=== PATIENT | male | born 1960 | race Caucasian/White ===

== ENCOUNTER → 2016-05-01 | Outpatient (CLI) | payer BC | END | disposition home or self-care (01) | LOC: LAB.O 09:27 | PROVIDERS: ATTEND Internal Medicine Hematology & Oncology | DX: D75.1 Secondary polycythemia (principal) ==

== ENCOUNTER → 2016-11-16 | Outpatient (CLI) | payer BC | END | disposition home or self-care (01) | LOC: LAB.O 08:44 | PROVIDERS: ATTEND Nurse Practitioner Family | DX: D58.2 Other hemoglobinopathies (principal) ==

== ENCOUNTER → 2016-11-23 | Outpatient (CLI) | payer BC | END | disposition home or self-care (01) | LOC: LAB.O 15:49 | PROVIDERS: ATTEND Internal Medicine Hematology & Oncology | DX: D75.1 Secondary polycythemia (principal) ==

== ENCOUNTER → 2017-02-28 | Outpatient (CLI) | payer BC | END | disposition home or self-care (01) | LOC: LAB.O 08:31 | PROVIDERS: ATTEND Internal Medicine Hematology & Oncology | DX: D75.1 Secondary polycythemia (principal) ==

== ENCOUNTER → 2018-03-04 | Outpatient (CLI) | payer BC ==
[~2018-03-04] MED LIST: IPRATROPIUM/ALBUTEROL 3 ML VIAL NEB ONE
== END ==
LOC: RESP 13:57
PROVIDERS: ATTEND Family Medicine
DX: R05 Cough (principal); F17.210 Nicotine dependence, cigarettes, uncomplicated
CPT/HCPCS: 94060; J7620

== ENCOUNTER 2018-04-23 16:01 | Inpatient (IN) | payer BC ==
--- NOTE | 2018-04-23 16:22 | ED.PDOC ---
History of Present Illness - General Chief Complaint: Trauma Stated Complaint: abdominal pain Time Seen by Provider: 04/23/18 16:11 Source: patient Exam Limitations: no limitations - History of Present Illness Initial Comments: PT TRIPPED AND FELL AGAINST LARGE BALE OF HAY YESTERDAY. HAD RLQ PAIN BUT HAS GOTTEN PROGRESSIVELY WORSE. PAST 2 HOURS STARTED DEVELOPING NAUSEA DECIDED TO COME TO ER FOR EVAL. ALSO HAS HX OF 4.2 CM AAA AND IS DUE FOR CTA IN LESS THAN A WEEK. Severity: moderate Improving Factors: nothing Worsening Factors: nothing Allergies/Adverse Reactions: Allergies Levofloxacin [From Levaquin] Allergy (Verified 04/23/18 16:17) Home Medications: Ambulatory Orders NK 04/23/18 Review of Systems - Review of Systems Constitutional: Denies: chills, fever, malaise, weakness EENTM: States: no symptoms reported Respiratory: Denies: cough, short of breath Cardiology: Denies: chest pain, palpitations, syncope Gastrointestinal/Abdominal: States: abdominal pain, nausea, other - NO HEMATACHEZIA. Denies: diarrhea, vomiting Genitourinary: States: no symptoms reported Musculoskeletal: Denies: back pain, neck pain Skin: States: no symptoms reported Neurological: States: no symptoms reported Endocrine: States: no symptoms reported Hematologic/Lymphatic: States: no symptoms reported Past Medical History (General) - Patient Medical History Hx Cardiac Disorders: Yes - AAA - Vaccination History Hx Influenza Vaccination: No Hx Pneumococcal Vaccination: No - Social History Hx Tobacco Use: Yes Hx Alcohol Use: No Family Medical History - Family History Mother Family History: Unknown Physical Exam - Physical Exam General Appearance: Alert, No apparent distress Eye Exam: bilateral normal Ears, Nose, Throat: normal ENT inspection Neck: non-tender, full range of motion, supple Respiratory: lungs clear, normal breath sounds, no respiratory distress, other - NO EVIDENCE OF CHEST WALL TRAUMA Cardiovascular/Chest: regular rate, rhythm, no murmur Gastrointestinal/Abdominal: normal bowel sounds, soft, no organomegaly, other - MOD TTP R MID ABDOMEN, NO RUQ TTP, NO EVIDENCE OF TRAUMA Back Exam: normal inspection, no CVA tenderness Extremity: normal range of motion, non-tender, normal inspection Neurologic: alert, normal mood/affect Skin Exam: normal color, other - NO ECCHYMOSIS Lymphatic: no adenopathy Progress - Progress Progress: 04/23/18 20:48 CTA ABDOMEN NO TRAUMA, AAA 4.6 BUT POSSIBLE APPENDICITIS, CT PELVIS POS APPENDICITIS, D/W DR DAGO VÁSQUEZ TO ADMIT AND ABX. D/W NINA WILL ADMIT. Departure - Departure Clinical Impression: Appendicitis Qualifiers: Appendicitis type: acute appendicitis Acute appendicitis type: unspecified acute appendicitis type Qualified Code(s): K35.80 - Unspecified acute appendicitis AAA (abdominal aortic aneurysm) Qualifiers: Presence of rupture: without rupture Qualified Code(s): I71.4 - Abdominal aortic aneurysm, without rupture Time of Disposition: 20:49 Disposition: Admit Patient Condition: Good Departure Forms: ED Discharge - Pt. Copy, Patient Portal Self Enrollment Instructions: DI for Trauma Referrals: ROMÁN NEUMANN MD [Primary Care Provider] - 1-2 Weeks Home Medications: Ambulatory Orders NK 04/23/18 Decision To Admit - Decistion To Admit Decision to Admit Date: 04/23/18 Decision to Admit Time: 20:50
--- NOTE | 2018-04-23 16:44 | RAD ---
EXAM DESCRIPTION: Chest,1 View CLINICAL HISTORY: 58 years Male, ABDOMINAL PAIN AFTER TRAUMA COMPARISON: None. TECHNIQUE: AP portable chest. FINDINGS: Lungs are clear. No consolidation. Heart normal size. IMPRESSION: Normal. Electronically signed by: Festus Kearney MD 04/23/2018 4:43 PM [facility]
--- NOTE | 2018-04-23 17:38 | CT ---
EXAM DESCRIPTION: CTA Abdomen CLINICAL HISTORY: FELL ON BALE OF HAY. PROGRESSIVE RLQ PAIN. HX AAA COMPARISON: None Available TECHNIQUE: Contiguous axial images of the abdomen were obtained after the administration of intravenous contrast followed by reconstruction images. MIP CTA reconstructions were created. This exam was performed according to our departmental dose-optimization program, which includes automated exposure control, adjustment of the mA and/or kV according to patient size and/or use of iterative reconstruction technique. FINDINGS: Soft tissue attenuation 9 mm right adrenal mass is present. Abdominal aortic aneurysm measures 46 mm diameter and is largely filled with plaque. The patent lumen is roughly the same size as the expected lumen of the aorta. There is internal plaque/thrombosis along the [place]. There is significant atherosclerotic plaque elsewhere. No evidence of dissection or active extravasation. Incompletely imaged is a tubular structure most likely representing the appendix which appears enlarged and blind-ending, measuring 14 mm diameter. However it is not fully imaged. There is mild soft tissue stranding in the right lower quadrant in this region. There is approximately 60% narrowing of the origin of the celiac trunk. The HEMALATHA is not well seen. Just below the origin of the renal arteries, there is a focal saccular appearing aneurysm of the aorta measuring 36 mm transverse. See coronal reconstructions. No other acute abnormality. No fracture is seen. No significant free fluid. No free air. No bowel obstruction. IMPRESSION: Complex abdominal aortic aneurysms with extensive atherosclerosis but no definite acute injury. Vascular surgical consultation and follow-up every six months is recommended. Possible appendicitis but the pelvis is not fully imaged. A tubular structure is only partially seen. Follow-up is recommended. The HEMALATHA is not well seen and may be significantly stenotic. Celiac trunk stenosis. Right adrenal mass. Electronically signed by: Camden Ayala 04/23/2018 5:37 PM [facility] [employer] COORDINATOR
[2018-04-23] MEDS ORDERED: PIPERACILLIN/TAZOBACTAM 3.375 GM in SODIUM CHLORIDE 0.9% 100ML 100 ML IVPB ONE ×2 (19:20→23:56)
[2018-04-23] MEDS ORDERED: PIPERACILLIN/TAZOBACTAM 3.375 GM VIAL IVPB ONE (19:48)
[2018-04-23] MEDS ORDERED: SODIUM CHLORIDE 0.9% 100ML 100 ML IVPB ONE (19:48)
--- NOTE | 2018-04-23 20:46 | CT ---
EXAM DESCRIPTION: Pelvis CLINICAL HISTORY: 58 years Male R/O APPENDICITIS, COMPARISON: None TECHNIQUE: Contiguous axial images were obtained through the pelvis at a slice thickness of 3 mm. Coronal and sagittal reconstructions are also obtained and reviewed. FINDINGS: PELVIS: BOWEL: The visualized small bowel and colon are unremarkable without evidence of obstruction or inflammatory changes. There is mural thickening in the rectum up to 1 cm with some asymmetric thickening on the right when compared to the left wall. APPENDIX: The appendix is dilated, measuring approximately 12 mm with periappendiceal reticulation. BLADDER: The urinary bladder is unremarkable, allowing for the degree of distention. There is no evidence of cystolithiasis or bladder mass. REPRODUCTIVE: The prostate is mildly enlarged, measuring 4.7 cm T . The seminal vesicles appear unremarkable. INTRAPERITONEAL SPACE: Unremarkable. No free air or free fluid. No significant free fluid or focal fluid collection. BONES/JOINTS: There are no discernible acute fractures or areas of osseous destruction or blastic change. The SI joints are preserved. The sacral foraminal lines are intact. No evidence of subluxation or dislocation. SOFT TISSUES: There is a tiny fat-containing umbilical hernia. There is also a small fat-containing right inguinal hernia which measures up to 2.3 cm x 0.4 cm VASCULATURE: There is an infrarenal abdominal aortic aneurysm measuring 4.6 cm AP by 4.3 cm T with mural thrombus narrowing the canalized lumen to 1.8 cm x 2.6 cm. The aneurysm terminates at the bifurcation. There is scattered atherosclerosis. LYMPH NODES: Unremarkable. There is no evidence of mesenteric, retroperitoneal, pelvic or inguinal adenopathy. IMPRESSION: Acute appendicitis. THIS REPORT CONTAINS FINDINGS THAT MAY BE CRITICAL TO PATIENT CARE: The findings were verbally discussed via telephone conference with Dr. Dago Slaughter by Dr. Marianne Victor on 04/23/2018 8:41 PM [employer] W[employer] T[employer]ATMENT OPERATOR .The results were acknowledged and understood. Mural thickening of the rectum, eccentrically more prominent on the right could be inflammatory or neoplastic. Recommend careful clinical exam and/or proctoscopy. Infrarenal abdominal aortic aneurysm. Mild prostatomegaly. Recommend correlation with serum PSA. Electronically signed by: Marianne Victor MD 04/23/2018 8:45 PM P[employer]ABLE WATER TREATMENT OPERATOR
--- NOTE | 2018-04-23 23:05 | HP ---
SUPERVISING PHYSICIAN: Diaz Gambino MD CHIEF COMPLAINT: Abdominal pain. HISTORY OF PRESENT ILLNESS: This is a 58-year-old male patient who tripped and fell against a large bale of hay the day before his admission. He had right lower quadrant pain after he fell against it and it progressively worsened overnight. He started having some nausea and came to the Emergency Room for evaluation. He has a history of a 4.2 cm abdominal aortic aneurysm and he is to have a CTA of the abdomen within the next week. In the Emergency Room, his vital signs showed temperature 97, heart rate 75, blood pressure 142/88, respiratory rate 20, O2 saturation 98%. His labs showed CBC that was unremarkable. Chemistry showed sodium 131, potassium 4.2, chloride 98, carbon dioxide 23, BUN 14, creatinine 0.99, serum osmolality 263.3. Urinalysis was basically within normal limits. His chest x-ray was normal. Abdominal CTA impression showed complex abdominal aortic aneurysm with extensive atherosclerosis, but no definite acute injury. Vascular surgical consultation and followup every 6 months is recommended. Possible appendicitis, but the pelvis is not fully imaged. A tubular structure is only partially seen. Followup is recommended. The HEMALATHA is not well seen and may be significantly stenotic. Celiac trunk stenosis. Right adrenal mass. The pelvic CT showed acute appendicitis with mural thickening of the rectum, eccentrically more prominent on the right could be inflammatory or neoplastic. Recommend careful clinical exam and/or proctoscopy. Infrarenal abdominal aortic aneurysm that is 4.6 cm x 4.[address] Pollack was called and consulted from the Emergency Room and then I was called to admit the patient to the hospital. PAST MEDICAL HISTORY: 1. Polycythemia vera. 2. Abdominal aortic aneurysm. PAST SURGICAL HISTORY: 1. Neck surgery. 2. Testicular removal at age 16 due to testicular torsion. OUTPATIENT MEDICATIONS: None. ALLERGIES: LEVAQUIN. SOCIAL HISTORY: He lives in [place]. He is . He smokes about 2 packs of cigarettes daily. He denies any ETOH or illicit drug use. REVIEW OF SYSTEMS: GENERAL: Negative for fever, chills or weight changes. HEENT: Negative for sinus symptoms, ear pain, vision changes or sore throat. RESPIRATORY: Negative for wheezing, coughing or shortness of breath. CARDIAC: Negative for chest pain, palpitations or tachycardia. GASTROINTESTINAL: As per history of present illness. GENITOURINARY: Negative for hematuria, dysuria or polyuria. MUSCULOSKELETAL: Negative for back pain, arthralgias, myalgias. SKIN: Negative for lesions or rashes. NEUROLOGIC: Negative for headache, dizziness or seizures. HEMATOLOGIC: Negative for bruising or unusual bleeding other than his polycythemia vera for which he has to be phlebotomized when his hematocrit gets above 54. PHYSICAL EXAMINATION: VITAL SIGNS: Temperature 98.6. Heart rate 95. Blood pressure 118/73. Respiratory rate 20. O2 saturation 97%. GENERAL: This is a 58-year-old male lying in his hospital bed. He is in no acute distress. HEENT: Normocephalic, atraumatic. Pupils are equal and reactive. Oropharynx is clear. NECK: Supple without mass. RESPIRATORY: Essentially clear to auscultation bilaterally. CHEST: There is equal rise and fall of the chest with inspiration and expiration. CARDIOVASCULAR: Regular rate and rhythm. No murmur detected. GASTROINTESTINAL: Abdomen is soft, nondistended. It is moderately tender to palpation of the right lower quadrant. There is no evidence of trauma. There is no rebound tenderness or guarding. EXTREMITIES: No cyanosis, clubbing or edema. NEUROLOGIC: Awake, alert and oriented times three. Cranial nerves II-XII are grossly intact. SKIN: Warm and dry. Normal color. There is no ecchymosis. LYMPHATIC: No cervical adenopathy. LABORATORY: Labs and films are as per history of present illness. IMPRESSION: 1. Acute appendicitis. 2. History of polycythemia vera. 3. Mild electrolyte imbalance, mainly hyponatremia and hypochloremia. 4. Tobacco abuse. 5. History of abdominal aortic aneurysm. PLAN: We will admit the patient to the hospital. He will be NPO at midnight. I have started him on Flagyl and Zosyn. I have consulted Dr. Pollack. He will see him in consult tomorrow to decide if he is a candidate for surgery. He will be on fluids overnight. I have given him an antiemetic as well as Dilaudid pain medication and he will be on a proton pump inhibitor for ulcer prophylaxis. We will do SCDs for DVT prophylaxis until after we decided if he is to have surgery. If he does, postoperatively we will give him Lovenox as recommended by Dr. Ranjeet. We will continue to monitor the patient closely and follow as needed. #[id number] MTDD
[2018-04-23] MEDS ORDERED: ONDANSETRON INJ 4 MG/2 ML VIAL IV PRN (23:43)
[2018-04-23] MEDS ORDERED: SODIUM CHLORIDE 0.9% (FLUSH) 10 ML SYG IV PRN (23:43)
[2018-04-23] MEDS ORDERED: IV SET AND CAP CHANGE INJ INJ SCH (23:45)
[2018-04-24] MEDS ORDERED: SODIUM CHLORIDE 0.9% 100ML 100 ML IVPB ONE ×4 (00:17→19:05)
[2018-04-24] MEDS ORDERED: PIPERACILLIN/TAZOBACTAM 3.375 GM VIAL IVPB ONE ×4 (00:17→19:04)
[2018-04-24] MEDS: PIPERACILLIN/TAZOBACTAM 3.375 GM in SODIUM CHLORIDE 0.9% 100ML 100 ML IVPB SCH ×3 (00:24→16:23)
[2018-04-24] MEDS: DEX 5% W/NACL 0.9% 1000ML 1,000 ML IVS PRN ×2 (00:25→21:55)
[2018-04-24] MEDS ORDERED: PIPERACILLIN/TAZOBACTAM 3.375 GM in SODIUM CHLORIDE 0.9% 100ML 100 ML IVPB SCH (03:00)
[2018-04-24] MEDS: SODIUM CHLORIDE 0.9% (FLUSH) 10 ML SYG IV SCH ×2 (08:35→20:57)
--- NOTE | 2018-04-24 13:14 | CONS ---
DATE OF CONSULTATION: 04/24/18 HISTORY OF PRESENT ILLNESS: The patient is a 58-year-old male who yesterday got somewhat pinched between two large round hay mirna. He developed right sided abdominal pain which worsened and he presented to the Emergency Room. He also had some nausea. It is significant that the patient is known to have abdominal aortic aneurysm that is being followed. His workup in the Emergency Room revealed a CT scan which revealed the aneurysm to be 4.6 cm, which was slightly larger than what was reported previously, but it was not done on our machines. I am not certain whether the 4.3 cm was from an ultrasound or CT scan. He also was noted to have some thickening in the rectal wall of uncertain etiology, but I was asked to see him specifically because of inflammatory changes about the appendix. The patient denies fever or chills and had a normal white blood cell count. PAST MEDICAL HISTORY: 1. Testicular torsion with orchiectomy at age 16. 2. Polycythemia vera. 3. Neck surgery/spine. CURRENT MEDICATIONS: He takes no medications routinely. ALLERGIES: LEVAQUIN. SOCIAL HISTORY: He does not use alcohol or drugs, but he does smoke approximately 2 packs of cigarettes a day and has for many years. He is . REVIEW OF SYSTEMS: As noted, no fever, chills or weight loss. He has no shortness of breath, chest pain or productive cough. He does have mild right upper quadrant tenderness, which is much improved from last night. He denies urinary tract symptoms. The patient underwent a colonoscopy for routine screening at age 50 or 51 and has had nothing since. He does deny melena, change in his bowel habits or blood per rectum. PHYSICAL EXAMINATION: GENERAL: The patient is awake, alert, cooperative, in no acute distress. VITAL SIGNS: The patient is currently afebrile, normotensive. HEENT: Sclerae nonicteric. Mucous membranes moist. NECK: Without adenopathy. BACK: Without CVA tenderness. CHEST: Equal breath sounds bilaterally. HEART: Regular rhythm. ABDOMEN: Soft, mildly tenderness. There is minimal tenderness in the right lower quadrant without mass or rebound. RECTAL: Deferred. ASSESSMENT: 1. Possible acute appendicitis based on CT scan with no fever, nausea currently or leukocytosis. 2. History of polycythemia vera. 3. Tobacco abuse. 4. Abdominal aortic aneurysm. PLAN: He has been admitted and started on Flagyl and Zosyn and has been kept NPO. He is currently without significant pain and is hungry. At this point, I will recommend that we continue to follow him. He is somewhat high risk for surgery due to the aneurysm, so we will continue his antibiotics for at least 24 hours of IV antibiotics, start him on a clear liquid diet and advance him as tolerated. He also needs to have a colonoscopy done. Hopefully this will resolve and all these things can be done on an elective basis along with his routine followup for his aneurysm. #[id number] [facility]
[2018-04-24] MEDS: NICOTINE PATCH 14 MG TD SCH (13:15)
[2018-04-25] MEDS: PIPERACILLIN/TAZOBACTAM 3.375 GM in SODIUM CHLORIDE 0.9% 100ML 100 ML IVPB SCH ×2 (00:30→09:29)
[2018-04-25 02:34] VITALS: TEMP 98.1
[2018-04-25 06:50] VITALS: O2SAT 96
--- NOTE | 2018-04-25 08:11 | PN ---
SUPERVISING PHYSICIAN: Diaz Gambino MD DATE: 04/24/18 SUBJECTIVE: The patient is walking around in his hospital room. He has no complaints of nausea, vomiting, diarrhea, constipation, abdominal pain or chest pain. He tolerated his low-fat diet without any issues. I explained he would continue on his antibiotics and Dr. Pollack would reevaluate him tomorrow. OBJECTIVE: VITAL SIGNS: Temperature 98. Heart rate 77. Blood pressure 99/62. Respiratory rate 18. O2 saturation 96% on room air. RESPIRATORY: Essentially clear to auscultation bilaterally. CARDIAC: Regular rate and rhythm. GASTROINTESTINAL: Abdomen is soft, nondistended, nontender. Bowel sounds are positive. NEUROLOGIC: Awake, alert and oriented times three. LABORATORY: CBC is basically within normal limits. Chemistry is basically within normal limits with the exception of his glucose is slightly high at 120. All other labs and films have been reviewed via the EMR. ASSESSMENT: 1. Acute appendicitis that has responded to IV antibiotics and bowel rest. 2. History of polycythemia vera. 3. Mild electrolyte imbalance, improved. 4. Tobacco abuse. 5. History of abdominal aortic aneurysm. PLAN: We will continue present supportive care. He will continue on his Flagyl and Zosyn overnight. Surgical issues will be per recommendations of Dr. Pollack. As per his previous CT scan, he will need a colonoscopy as well as recommend a lung clearance for any kind of surgery since he is a heavy, two-pack a day smoker. I have also given him a nicotine patch. We have again discussed smoking cessation. He will need to see his primary care physician, Dr. Tolentino, for followup and then after that he will need to see Dr. Pollack. We will continue some antibiotics on discharge. Hopefully, we can discharge him tomorrow with close followup. #[id number] MTDD
[2018-04-25] MEDS ORDERED: PIPERACILLIN/TAZOBACTAM 3.375 GM VIAL IVPB ONE (09:15)
[2018-04-25] MEDS ORDERED: SODIUM CHLORIDE 0.9% 100ML 100 ML IVPB ONE (09:15)
[2018-04-25] MEDS: NICOTINE PATCH 14 MG TD SCH (09:28)
[2018-04-25] MEDS: SODIUM CHLORIDE 0.9% (FLUSH) 10 ML SYG IV SCH (09:34)
[2018-04-25 10:09] VITALS: BP 122/75
--- NOTE | 2018-04-25 13:54 | DS ---
SUPERVISING PHYSICIAN: Diaz Gambino MD DISCHARGE DIAGNOSIS: 1. Acute appendicitis that has responded to IV antibiotics and bowel rest. 2. History of polycythemia vera. 3. Mild electrolyte imbalance, improved. 4. Tobacco abuse. 5. History of abdominal aortic aneurysm. HISTORY OF PRESENT ILLNESS: This is a 58-year-old male patient who tripped and fell against a large bale of hay the day before his admission. He hit on his right lower abdomen. He had pain in that area after he fell against it and it progressively worsened overnight. He started having some nausea and came to the Emergency Room for evaluation. He has a history of a 4.2 cm abdominal aortic aneurysm and he was to have a CTA of the abdomen within the next week. In the Emergency Room, his vital signs showed temperature 97, heart rate 75, blood pressure 142/88, respiratory rate 20, O2 saturation 98%. His labs showed CBC that was unremarkable. Chemistry showed sodium 131, potassium 4.2, chloride 98, carbon dioxide 23, BUN 14, creatinine 0.99, serum osmolality 263.3. Urinalysis was within normal limits. His chest x-ray was normal. Abdominal CTA impression showed complex abdominal aortic aneurysm with extensive atherosclerosis, but no definite acute injury. Vascular surgical consultation and followup every 6 months is recommended. Possible appendicitis, but the pelvis is not fully imaged. A tubular structure is only partially seen. Followup is recommended. The HEMALATHA is not well seen and may be significantly stenotic. Celiac trunk stenosis. Right adrenal mass. The pelvic CT showed acute appendicitis with mural thickening of the rectum, eccentrically more prominent on the right could be inflammatory or neoplastic. Recommend careful clinical exam and/or proctoscopy. Infrarenal abdominal aortic aneurysm that is 4.6 cm x 4.3 cm. I was called from the Emergency Room for admission to the hospital. Dr. Pollack was also consulted. HOSPITAL COURSE: He was given Zosyn as well as Flagyl and put on bowel rest. His pain improved with antibiotics and rest. He was on fluids overnight and was given antiemetic and pain medications. The next day, his diet was advanced. He had no pain to the abdomen. After speaking with Dr. Pollack, he recommended the patient be discharged home on antibiotics with close followup with his primary care physician, Dr. Tolentino. DISCHARGE PLAN: The patient is discharged home. He will need lung clearance as he is a heavy smoker as well as colonoscopy is recommended by the CAT scan prior to any surgical intervention. Dr. Pollack said Dr. Tolentino should call him for any questions about his discharge plan. If he has any problems or complications, he should return to the hospital or call Dr. Tolentino's office or followup with Dr. Pollack. He is to resume his previous activity. We discussed smoking cessation at length. He also has a followup with his vascular surgeon in regards to his abdominal aortic aneurysm and I have recommended his get the CTA DVD to take with her to his appointment. DISCHARGE MEDICATIONS: 1. Augmentin. 2. Metronidazole. #[id number] MTDD
== END 2018-04-25 12:50 | disposition home or self-care (01) | DRG 394 ==
LOC: ER 16:01 → OBSVTOIN 23:04 → MS 23:04
PROVIDERS: ADMIT Nurse Practitioner Acute Care; ATTEND Nurse Practitioner Acute Care
DX: K35.80 Unspecified acute appendicitis (principal); E87.1 Hypo-osmolality and hyponatremia; I71.4 Abdominal aortic aneurysm, without rupture; D45 Polycythemia vera; F17.210 Nicotine dependence, cigarettes, uncomplicated; E87.8 Other disorders of electrolyte and fluid balance, not elsewhere classified; Z88.5 Allergy status to narcotic agent

== ENCOUNTER → 2018-06-12 | Outpatient (CLI) | payer BC | LOC: GMAE 14:21 | PROVIDERS: ATTEND Family Medicine | DX: R10.32 Left lower quadrant pain (principal) ==

== ENCOUNTER → 2018-10-30 | Outpatient (CLI) | payer BC ==
--- NOTE | 2018-10-30 11:53 | US ---
EXAM DESCRIPTION: Soft Tissue,Extremity CLINICAL HISTORY: 58 years, Male, LOC SWELLING,MASS AND LUMP, LEFT LOWER LIMB COMPARISON: None. TECHNIQUE: Sonographic evaluation with high frequency transducer using both kraus-scale and Doppler technology. FINDINGS: Sonographic evaluation of the region of interest along the left medial ankle/area of swelling demonstrate a heterogeneous elongated fluid collection measuring approximately 3.6 x 1.2 x 0.8 cm with central linear echogenic structure which may represent complex soft tissue fluid collection versus tenosynovitis. IMPRESSION: Left medial ankle elongated fluid collection may represent a complex soft tissue fluid collection (sterile versus nonsterile) versus tenosynovitis. Clinical correlation requested. Follow-up with contrast-enhanced MRI can be obtained if clinically warranted. Electronically signed by: Everardo Griffith DO 10/30/2018 11:52 AM CDT
== END ==
LOC: US 08:18
PROVIDERS: ATTEND Family Medicine
DX: R22.42 Localized swelling, mass and lump, left lower limb (principal)

== ENCOUNTER 2018-12-15 20:26 | Emergency (ER) | payer BC ==
[2018-12-15] MEDS ORDERED: HYDROcodone 5MG/APAP 325MG 1 EA TAB PO ONE (21:15)
--- NOTE | 2018-12-15 21:18 | ED.PDOC ---
History of Present Illness - General Chief Complaint: Fever Time Seen by Provider: 12/15/18 21:05 - History of Present Illness Initial Comments: Patient is a 58 y.o. M w/ pmh of prostate CA, AAA who presents to the ED c/o a fever and L calf pain. Reports having pain for the past few days. Developed a fever 4 days ago as high as 102. 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 No H/o blood clots. Denies cough, chest pain, dysuria, sore throat. He went to urgent care where he had a negative flu swab and was told to come to the ED. Review of Systems - Review of Systems Constitutional: States: chills, fever, malaise EENTM: States: no symptoms reported Respiratory: States: no symptoms reported Cardiology: States: no symptoms reported Gastrointestinal/Abdominal: States: no symptoms reported Genitourinary: States: no symptoms reported Musculoskeletal: States: other - calf pain and tenderness Skin: States: no symptoms reported Neurological: States: no symptoms reported Endocrine: States: no symptoms reported Hematologic/Lymphatic: States: no symptoms reported All other Systems: Reviewed and Negative Past Medical History (General) - Patient Medical History Hx Seizures: No Hx Stroke: No Hx Asthma: No Hx of COPD: No Hx Cardiac Disorders: Yes - AAA Hx Congestive Heart Failure: No Hx Pacemaker: No Hx Hypertension: No Hx Diabetes: No Hx MRSA: No - Vaccination History Hx Influenza Vaccination: No Hx Pneumococcal Vaccination: No - Social History Hx Tobacco Use: Yes Hx Alcohol Use: No Hx Substance Use: No Hx Physical Abuse: No Hx Emotional Abuse: No Family Medical History - Family History Mother Family History: Unknown Living Status: Hx Family Hypertension: Yes Hx Cardiac Disease: Yes Hx Family Diabetes: Yes Father Living Status: Hx Family;Other: Parkinsons Physical Exam - Physical Exam General Appearance: Alert, Comfortable Eye Exam: bilateral normal ENT Exam: normal ENT inspection, hearing grossly normal Neck: non-tender, supple Respiratory: lungs clear, normal breath sounds Cardiovascular/Chest: normal peripheral pulses, regular rate, rhythm Gastrointestinal/Abdominal: non tender, soft Extremity: other - + shakir's sign on L, no swelling or erythema Neurologic: no motor/sensory deficits, alert, normal mood/affect, oriented x 3 Skin Exam: normal color, warm/dry Progress - Progress Progress: 12/15/18 21:18 MDM patient w/ pmh of prostate CA, AAA, presents c/o LLE pain and fever. No obv so urce of infection. Plan for septic w/u with d-dimer for possible DVT, reassess. Wilner Quevedo MD #[id number] 12/15/18 22:43 D-dimer elevated at 3.95. Patient also with SYLVESTER. Offered patient admission for observation but he prefers to be discharged. Moderate suspicion of DVT as cause of his fever and leg pain. With shared decision making decided patient will return to ER in the AM for US and to hold on anticoagulation for now given his h/o AAA. Departure - Departure Clinical Impression: Fever in adult, Elevated d-dimer, Leg pain, left Disposition: Discharge to Home or Self Care Condition: Good Departure Forms: ED Discharge - Pt. Copy, Patient Portal Self Enrollment Instructions: DI for Fever (Symptom) -- Adult Referrals: ROMÁN NEUMANN MD [Primary Care Provider] - 1-2 Weeks Home Medications: Ambulatory Orders Amoxicillin & Pot Clavulanate [Augmentin Tab] 875 mg PO BID #18 tab 04/25/18 metroNIDAZOLE [Flagyl] 500 mg PO Q8H #27 tab 04/25/18 Additional Instructions: Please return to ER at 8am for US of leg.
[2018-12-15 21:22] VITALS: O2SAT 98
--- NOTE | 2018-12-15 21:48 | RAD ---
EXAM: XR Chest, 2 Views CLINICAL HISTORY: cough TECHNIQUE: Frontal and lateral views of the chest. COMPARISON: 04/23/2018. FINDINGS: Limitations: None. Lungs: Unremarkable. No consolidation. Pleural space: Unremarkable. No pneumothorax. Heart: Unremarkable. No cardiomegaly. Mediastinum: Unremarkable. Bones/joints: Unremarkable. IMPRESSION: No acute findings in the chest. Electronically signed by: Lottie Falk MD 12/15/2018 9:47 PM CDT
[2018-12-15] MEDS ORDERED: SODIUM CHLORIDE 0.9% 1000ML 1,000 ML IVS ONE (21:53)
[2018-12-15 23:22] VITALS: BP 128/73; TEMP 99.3
== END 2018-12-15 23:22 | disposition home or self-care (01) ==
LOC: ER 20:26
DX: R50.9 Fever, unspecified (principal); M79.662 Pain in left lower leg; R79.89 Other specified abnormal findings of blood chemistry; N17.9 Acute kidney failure, unspecified; Z85.46 Personal history of malignant neoplasm of prostate; Z87.891 Personal history of nicotine dependence
CPT/HCPCS: 36415; 71046; 80053; 81001; 83605; 85025; 85379; J7030

== ENCOUNTER → 2018-12-16 | Outpatient (CLI) | payer BC ==
--- NOTE | 2018-12-16 14:30 | US ---
EXAM DESCRIPTION: Venous,Lower Extremity LT: ULTRASOUND. CLINICAL HISTORY: DVT. Left lower extremity. COMPARISON: None Available. TECHNIQUE: Stafford-scale and doppler sonographic evaluation of the deep venous system of the left lower extremity. FINDINGS: Doppler evaluation shows normal color flow and normal phasicity and augmentation of the left common femoral vein, deep femoral vein, femoral vein, popliteal vein, greater saphenous vein, junction with the CFV, peroneal, and posterior tibial vein. The left lower extremity deep veins were completely compressible; normal occlusion with transducer pressure. Stafford-scale survey showed no echogenic thrombus within these veins. IMPRESSION: 1. Duplex ultrasound evaluation of the left lower extremity deep venous system showing no evidence of thrombosis. Electronically signed by: Camden Baron MD 12/16/2018 2:28 PM CDT
== END ==
LOC: US 10:43
PROVIDERS: ATTEND Emergency Medicine
DX: M79.605 Pain in left leg (principal)

== ENCOUNTER → 2019-01-13 | Outpatient (CLI) | payer BC ==
--- NOTE | 2019-01-14 09:43 | NM ---
EXAM DESCRIPTION: Bone Scan, Whole Body: Nuclear Medicine CLINICAL HISTORY: 58 years Male BONE PAIN COMPARISON: None. TECHNIQUE: Patient injected with 25.4 mCi of technetium 99M MDP IV. Delayed gamma camera images from various planes were obtained 3 hr after injection. FINDINGS: Focal increased activity in the right anterior seventh rib and right anterior eighth rib. No other abnormal focal increased activity in the long bones, flat bones, or skull. Activity in the lumbar spine at the L3 level may be related to endplate injury or spondylosis. Also activity right posterior L5-S1 level could be within the endplate or facet joint. Small focal increased activity in the lateral left hip joint better visualized on the posterior projection. Abnormal soft tissue activity lateral to the left kidney. This could be related to spleen or bowel such as descending colon. Remaining soft tissue activity is unremarkable. IMPRESSION: 1. Focal increased radiopharmaceutical activity in the anterior right kidney seventh rib at the eighth rib. This could also be due to overlying soft tissue activity. Recommend correlation with rib radiographs. 2. Focal increased radiopharmaceutical activity in the lateral posterior left hip joint is likely arthrosis. Correlate with left hip joint radiographs. 3. Focal increased waveform cerebral activity in the superior L3 endplate and in the posterior L5-S1 region, most likely related to spondylosis or facet arthrosis. Recommend correlation with 5 view lumbar spine radiographs. 4. Abnormal soft tissue activity lateral to the left kidney possibly spleen, small bowel, descending colon, or abdominal wall. Consider correlation with CT scan abdomen and pelvis with IV and oral contrast. The scan can also include the right seventh and eighth ribs and other bony findings. Electronically signed by: Camden Baron MD 01/14/2019 9:41 AM CDT
== END ==
LOC: NM 08:39
PROVIDERS: ATTEND Internal Medicine Hematology & Oncology
DX: C61 Malignant neoplasm of prostate (principal); D75.1 Secondary polycythemia; R49.0 Dysphonia; R13.12 Dysphagia, oropharyngeal phase; M25.50 Pain in unspecified joint

== ENCOUNTER → 2019-01-21 | Outpatient (CLI) | payer BC | LOC: GMAE 10:32 | PROVIDERS: ATTEND Family Medicine | DX: Z79.01 Long term (current) use of anticoagulants (principal) ==

== ENCOUNTER → 2019-03-04 | Outpatient (CLI) | payer BC | LOC: LAB.O 13:57 | PROVIDERS: ATTEND Internal Medicine Hematology & Oncology | DX: C61 Malignant neoplasm of prostate (principal); B39.4 Histoplasmosis capsulati, unspecified; D75.1 Secondary polycythemia ==

== ENCOUNTER → 2019-03-30 | Outpatient (CLI) | payer BC | LOC: GRHH 13:29 | PROVIDERS: ATTEND Internal Medicine Infectious Disease | DX: T81.40XD Infection following a procedure, unspecified, subsequent encounter (principal); Z51.81 Encounter for therapeutic drug level monitoring; Z79.2 Long term (current) use of antibiotics ==

== ENCOUNTER → 2019-04-06 | Outpatient (CLI) | payer BC | LOC: GRHH 12:57 | PROVIDERS: ATTEND Internal Medicine Infectious Disease | DX: T81.40XD Infection following a procedure, unspecified, subsequent encounter (principal); Z51.81 Encounter for therapeutic drug level monitoring; Z79.2 Long term (current) use of antibiotics ==

== ENCOUNTER → 2019-04-07 | Outpatient (CLI) | payer BC | LOC: GRHH 15:06 | PROVIDERS: ATTEND Internal Medicine Infectious Disease | DX: T81.40XD Infection following a procedure, unspecified, subsequent encounter (principal); Z51.81 Encounter for therapeutic drug level monitoring; Z79.2 Long term (current) use of antibiotics ==

== ENCOUNTER → 2019-04-13 | Outpatient (CLI) | payer BC | LOC: GRHH 12:26 | PROVIDERS: ATTEND Internal Medicine Infectious Disease | DX: T81.40XD Infection following a procedure, unspecified, subsequent encounter (principal); Z51.81 Encounter for therapeutic drug level monitoring; Z79.2 Long term (current) use of antibiotics ==

== ENCOUNTER → 2019-05-04 | Outpatient (CLI) | payer BC | LOC: GRHH 09:45 | PROVIDERS: ATTEND Family Medicine | DX: I10 Essential (primary) hypertension (principal); D64.9 Anemia, unspecified ==

== ENCOUNTER → 2020-02-04 | Outpatient (CLI) | payer BC | LOC: LAB.O 13:27 | PROVIDERS: ATTEND Nurse Practitioner Pediatrics | DX: N18.30 Chronic kidney disease, stage 3 unspecified (principal); N25.81 Secondary hyperparathyroidism of renal origin; E87.8 Other disorders of electrolyte and fluid balance, not elsewhere classified; D63.1 Anemia in chronic kidney disease; E55.9 Vitamin D deficiency, unspecified ==